=== PATIENT | female | born 1965 | race Two or more races ===

== ENCOUNTER 2017-08-04 16:04 | Outpatient (CLI) | payer OTHER | END 2017-08-04 16:08 | disposition home or self-care (01) | LOC: MAMO-SONO 16:04 | DX: N60.11 Diffuse cystic mastopathy of right breast (principal); N60.12 Diffuse cystic mastopathy of left breast; Z12.31 Encounter for screening mammogram for malignant neoplasm of breast ==

== ENCOUNTER 2021-08-11 10:42 | Outpatient (CLI) | payer OTHER | END 2021-08-11 10:55 | disposition home or self-care (01) | LOC: RAD 10:42 | DX: K59.04 Chronic idiopathic constipation (principal) ==